=== PATIENT | male | born 1985 | race Caucasian/White ===

== ENCOUNTER 2025-08-03 08:19 | Outpatient (CLI) | payer OTHER, SELFPAY ==
--- NOTE | 2025-08-03 08:30 | US_ITS ---
WS: [id number] RIGHT UPPER QUADRANT ULTRASOUND HISTORY: cholelithiasis COMPARISON: None available. Liver: 15.0 cm in length. Normal size liver. No intrahepatic duct dilatation. Small hepatic cyst in the RIGHT lobe measures 1.4 x 1.6 x 1.3 cm. Portal Vein: Normal hepatopetal flow with monophasic waveform. Gallbladder: Very mildly prominent gallbladder wall. No adjacent fluid or edema. No stones are identified. CBD: 0.4 cm Pancreas: Normal size and echogenicity. Right kidney: 11.6 cm in length. Normal size and echogenicity. No hydronephrosis or mass. Aorta and IVC: Unremarkable abdominal aorta and IVC. No ascites. US/US gall bladder [id number] IMPRESSION: 1. No cholelithiasis. 2. Gallbladder wall is measuring top normal size. There is no adjacent inflamm ation or fluid. This may be secondary to nonfasting state or mild hepatocellula r disease. 3. Hepatic cyst, 1.6 cm.
== END 2025-08-03 08:20 | disposition home or self-care (01) ==
LOC: RAD 08:22
PROVIDERS: Visit Provider Surgery
DX: K80.20 Calculus of gallbladder without cholecystitis without obstruction (principal); K76.89 Other specified diseases of liver
CPT/HCPCS: 76705